=== PATIENT | male | born 1960 | race African-American/Black ===

== ENCOUNTER 2017-07-05 13:22 | Inpatient (IN) | payer OTHER ==
[2017-07-05 16:22] VITALS: BMI 19.7
--- NOTE | 2017-07-05 18:53 | HP ---
CIWA Score - CIWA Score Nausea/Vomitin-Mild Nausea/No Vomiting Muscle Tremors: 1-None Visible, but [place] Anxiety: 2 Agitation: 2 Paroxysmal Sweats: 1-Minimal Palms Moist Orientation: 1-Uncertain about Date Tacttile Disturbances: 2-Mild Itch/Numbness/Burn Auditory Disturbances: 0-None Visual Disturbances: 1-Very Mild Sensitivity Headache: 3-Moderate CIWA-Ar Total Score: 14 Admission ROS BHS - HPI Chief Complaint: WITHDRAWAL SYMPTOMS Allergies/Adverse Reactions: Allergies Allergy/AdvReac Type Severity Reaction Status Date / Time Penicillins Allergy Severe Hives Verified 07/05/17 17:02 History of Present Illness: 56 Y.O. MAN WITH AN EXTENSIVE HISTORY OF ALCOHOL AND CRACK-COCAINE DEPENDENCE IS HERE SEEKING HIS FIRST ADMISSION TO DETOX. Exam Limitations: No Limitations - Ebola screening Have you traveled outside of the country in the last 21 days: No Have you had contact with anyone from an Ebola affected area: No Have you been sick,other than usual withdrawal symptoms: No Do you have a fever: No - Review of Systems Constitutional: Loss of Appetite, Unintentional Wgt. Loss EENT: reports: Tearing Respiratory: reports: No Symptoms reported Cardiac: reports: No Symptoms Reported GI: reports: No Symptoms Reported : reports: No Symptoms Reported Musculoskeletal: reports: Joint Pain (LEFT HIP PAIN) Integumentary: reports: No Symptoms Reported Neuro: reports: Headache Endocrine: reports: No Symptoms Reported Hematology: reports: No Symptoms Reported Psychiatric: reports: Orientated x3, Depressed Other Systems: Reviewed and Negative Patient History - Patient Medical History Hx Anemia: No Hx Asthma: No Hx Chronic Obstructive Pulmonary Disease (COPD): No Hx Cancer: No Hx Cardiac Disorders: No Hx Congestive Heart Failure: No Hx Hypertension: No Hx Hypercholesterolemia: No Hx Pacemaker: No HX Cerebrovascular Accident: No Hx Seizures: No Hx Dementia: No Hx Diabetes: No Hx Gastrointestinal Disorders: No Hx Liver Disease: No Hx Genitourinary Disorders: No Hx Sexually Transmitted Disorders: Yes (SYPHILIS AT 19 Y.O. ) Hx Renal Disease (ESRD): No Hx Thyroid Disease: No Hx Human Immunodeficiency Virus (HIV): No Hx Hepatitis C: No Hx Depression: Yes Hx Suicide Attempt: No Hx Bipolar Disorder: No Hx Schizophrenia: No - Patient Surgical History Past Surgical History: Yes Other Surgical History: R Thigh cyst removed in 06/16 Anesthesia Reaction: No - PPD History Previous Implant?: Yes Documented Results: Negative w/o proof Implanted On Prior [facility] Admission?: No PPD to be Administered?: Yes - Reproductive History Patient is a Female of Child Bearing Age (11 -55 yrs old): No - Smoking Cessation Smoking history: Current every day smoker Have you smoked in the past 12 months: Yes Aproximately how many cigarettes per day: 5 Hx Chewing Tobacco Use: No Initiated information on smoking cessation: Yes 'Breaking Loose' booklet given: 07/05/17 - Substance & Tx. History Hx Alcohol Use: Yes Hx Substance Use: Yes Substance Use Type: Alcohol, Cocaine Hx Substance Use Treatment: No - Substances Abused Alcohol Route: Oral Frequency: Daily Amount used: 4 16 oz beers/ 1 pint cognac Age of first use: 21 Date of Last Use: 07/05/17 Crack Route: Smoking Frequency: Daily Amount used: $1000 Age of first use: 21 Date of Last Use: 07/04/17 Family Disease History - Family Disease History Family Disease History: Diabetes: Mother () Admission Physical Exam S - Vital Signs Vital Signs: Vital Signs - 24 hr 07/05/17 16:21 Temperature 96.7 F L Pulse Rate 95 H Respiratory 18 Rate Blood Pressure 124/84 - Physical General Appearance: Yes: Disheveled, Thin, Anxious HEENTM: Yes: Hearing grossly Normal, Normal ENT Inspection, Normocephalic, Normal Voice Respiratory: Yes: Chest Non-Tender, Lungs Clear, Normal Breath Sounds, No Respiratory Distress, No Accessory Muscle Use Neck: Yes: No masses,lesions,Nodules, Trachea in good position Breast: Yes: Breast Exam Deferred Cardiology: Yes: Regular Rhythm, Regular Rate Abdominal: Yes: Normal Bowel Sounds, Non Tender, Flat, Soft Genitourinary: Yes: Other (NO COMPLAINTS REPORTED) Back: Yes: Normal Inspection Musculoskeletal: Yes: full range of Motion, Gait Steady Extremities: Yes: Normal Capillary Refill, Normal Inspection, Normal Range of Motion, Non-Tender Neurological: Yes: Fully Oriented, Alert, Normal Mood/Affect, Normal Response Integumentary: Yes: Normal Color, Dry, Warm Lymphatic: Yes: Within Normal Limits - Diagnostic (1) Alcohol dependence with uncomplicated withdrawal Current Visit: Yes Status: Chronic (2) Cocaine dependence Current Visit: Yes Status: Chronic (3) Nicotine dependence Current Visit: Yes Status: Chronic (4) Underweight Current Visit: Yes Status: Chronic Cleared for Admission [facility] - Detox or Rehab [facility] Level of Care: Medically Managed Detox Regimen/Protocol: Librium [facility] Breath Alcohol Content Breath Alcohol Content: 0 Urine Drug Screen - Results Drug Screen Negative: No Urine Drug Screen Results: LIBERTAD-Cocaine
[2017-07-05] MEDS ORDERED: LOPERAMIDE HCL 2 MG CAPSULE PO PRN (19:03)
[2017-07-05] MEDS ORDERED: MAG HYDROX/AL HYDROX/SIMETH 30 ML UNIT-DOSE CUP PO PRN (19:03)
[2017-07-05] MEDS ORDERED: P-EPHED 60MG/TRIPROLIDI 2.5MG TABLET PO PRN (19:03)
[2017-07-05] MEDS ORDERED: IBUPROFEN 400 MG TABLET (FP) PO PRN (19:03)
[2017-07-05] MEDS ORDERED: chlordiazePOXIDE HCL 25 MG CAPSULE PO PRN (19:03)
[2017-07-05] MEDS ORDERED: MAGNESIUM CITRATE 300 ML BOTTLE PO PRN (19:03)
[2017-07-05] MEDS ORDERED: MAGNESIUM HYDROX 2400MG/30ML ORAL SUSPENSION 30 ML CUP PO PRN (19:03)
[2017-07-05] MEDS ORDERED: MENTHOL/PHENOL 1 EACH UD MM PRN (19:03)
[2017-07-05] MEDS ORDERED: guaiFENesin/D-METHORPHAN HB 10 ML UNIT-DOSE CUPS PO PRN (19:03)
[2017-07-05] MEDS ORDERED: hydrOXYzine PAMOATE 50 MG CAPSULE (FP) PO PRN (19:03)
[2017-07-05 20:55] LABS: URINE APPEARANCE CLEAR; URINE BILIRUBIN NEGATIVE (NEGATIVE); URINE BLOOD 1+ (NEGATIVE); URINE COLOR LTYELLOW; URINE GLUCOSE (UA) 1+ (NEGATIVE); URINE KETONE NEGATIVE (NEGATIVE); URINE LEUK ESTERASE NEGATIVE (NEGATIVE); URINE NITRITE NEGATIVE (NEGATIVE); URINE PROTEIN NEGATIVE (NEGATIVE); URINE UROBILINOGEN NEGATIVE mg/dL (0.2-1.0)
[2017-07-05 21:03] LABS: CALCIUM OXALATE CRYSTALS RARE /hpf (NONE SEEN); EPI CELLS RARE /HPF (FEW); URINE BACTERIA RARE /hpf (NONE SEEN); URINE HYALINE CAST 1 /lpf; URINE MUCUS RARE
[2017-07-05] MEDS: chlordiazePOXIDE HCL 25 MG CAPSULE PO SCH ×2 (22:04→22:14)
[2017-07-05] MEDS: THIAMINE HCL 100 MG TABLET (FP) PO SCH (22:04)
[2017-07-06] MEDS: ACETAMINOPHEN 325 MG TABLET (FP) PO PRN (06:01)
[2017-07-06] MEDS: chlordiazePOXIDE HCL 25 MG CAPSULE PO SCH ×4 (06:02→22:34)
[2017-07-06] MEDS: PRENATAL VITAMINS W/ FOLIC ACID TABLET (FP) PO SCH (10:19)
[2017-07-06 11:06] LABS: HEMATOCRIT 39.6 % (35.4-49); HEMOGLOBIN 12.4 GM/dL (11.7-16.9); MCH 25.3 pg (25.7-33.7); MCHC 31.4 g/dl (32.0-35.9); MEAN CELL VOLUME 80.7 fl (80-96); MEAN PLT VOLUME 7.6 fl (7.5-11.1); PLATELET COUNT 314 K/MM3 (134-434); RBC 4.91 M/mm3 (4.00-5.60); RDW 15.2 % (11.9-15.9); WHITE BLOOD COUNT 4.3 K/mm3 (4.0-10.0)
[2017-07-06 11:07] LABS: CHLORIDE 109 mmol/L (98-107); POTASSIUM 4.2 mmol/L (3.5-5.1); SODIUM 142 mmol/L (136-145)
[2017-07-06 11:16] LABS: ALBUMIN 3.1 g/dl (3.4-5.0); ALK PHOS 101 U/L (45-117); ANION GAP 6 (8-16); BILIRUBIN,TOTAL 0.4 mg/dL (0.2-1.0); BLOOD UREA NITROGEN 12 mg/dL (7-18); CALCIUM 8.4 mg/dL (8.5-10.1); CO2 27 mmol/L (21-32); CREATININE 1.1 mg/dL (0.7-1.3); GLUCOSE,RANDOM 82 mg/dL (74-106); SGOT/AST 17 U/L (15-37); SGPT/ALT 18 U/L (12-78); TOT PROT 6.1 g/dl (6.4-8.2)
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
--- NOTE | 2017-07-06 12:51 | PN ---
S CIWA - CIWA Score Nausea/Vomitin Muscle Tremors: 2 Anxiety: 2 Agitation: 2 Paroxysmal Sweats: 2 Orientation: 0-Oriented Tacttile Disturbances: 2-Mild Itch/Numbness/Burn Auditory Disturbances: 1-Very Mild Visual Disturbances: 1-Very Mild Sensitivity Headache: 2-Mild CIWA-Ar Total Score: 16 BHS Progress Note (SOAP) Subjective: Headache, shakes, sweats, sleeplessness, abdominal discomfort Objective: 07/06/17 12:50 Vital Signs - 8 hr 07/06/17 07/06/17 06:15 09:42 Temperature 98.1 F 96.1 F L Pulse Rate 79 90 Respiratory 16 20 Rate Blood Pressure 127/76 150/87 Laboratory Last Values WBC 4.3 K/mm3 (4.0-10.0) 07/06/17 08:00 RBC 4.91 M/mm3 (4.00-5.60) 07/06/17 08:00 Hgb 12.4 GM/dL (11.7-16.9) 07/06/17 08:00 Hct 39.6 % (35.4-49) 07/06/17 08:00 MCV 80.7 fl (80-96) 07/06/17 08:00 MCH 25.3 pg (25.7-33.7) L 07/06/17 08:00 MCHC 31.4 g/dl (32.0-35.9) L 07/06/17 08:00 RDW 15.2 % (11.9-15.9) 07/06/17 08:00 Plt Count 314 K/MM3 (134-434) 07/06/17 08:00 MPV 7.6 fl (7.5-11.1) 07/06/17 08:00 Sodium 142 mmol/L (136-145) 07/06/17 08:00 Potassium 4.2 mmol/L (3.5-5.1) 07/06/17 08:00 Chloride 109 mmol/L (98-107) H 07/06/17 08:00 Carbon Dioxide 27 mmol/L (21-32) 07/06/17 08:00 Anion Gap 6 (8-16) L 07/06/17 08:00 BUN 12 mg/dL (7-18) 07/06/17 08:00 Creatinine 1.1 mg/dL (0.7-1.3) 07/06/17 08:00 Creat Clearance w eGFR > 60 (>60) 07/06/17 08:00 Random Glucose 82 mg/dL (74-106) 07/06/17 08:00 Calcium 8.4 mg/dL (8.5-10.1) L 07/06/17 08:00 Total Bilirubin 0.4 mg/dL (0.2-1.0) 07/06/17 08:00 AST 17 U/L (15-37) 07/06/17 08:00 ALT 18 U/L (12-78) 07/06/17 08:00 Alkaline Phosphatase 101 U/L (45-117) 07/06/17 08:00 Total Protein 6.1 g/dl (6.4-8.2) L 07/06/17 08:00 Albumin 3.1 g/dl (3.4-5.0) L 07/06/17 08:00 Urine Color Ltyellow 07/05/17 19:00 Urine Appearance Clear 07/05/17 19:00 Urine pH 5.0 (5.0-8.0) 07/05/17 19:00 Ur Specific [place] 1.016 (1.001-1.035) 07/05/17 19:00 Urine Protein Negative (NEGATIVE) 07/05/17 19:00 Urine Glucose (UA) 1+ (NEGATIVE) H 07/05/17 19:00 Urine Ketones Negative (NEGATIVE) 07/05/17 19:00 Urine Blood 1+ (NEGATIVE) H 07/05/17 19:00 Urine Nitrite Negative (NEGATIVE) 07/05/17 19:00 Urine Bilirubin Negative (NEGATIVE) 07/05/17 19:00 Urine Urobilinogen Negative mg/dL (0.2-1.0) 07/05/17 19:00 Ur Leukocyte Esterase Negative (NEGATIVE) 07/05/17 19:00 Urine WBC (Auto) 5 /hpf (3-5) 07/05/17 19:00 Urine RBC (Auto) 29 /hpf (0-3) 07/05/17 19:00 Ur Epithelial Cells Rare /HPF (FEW) 07/05/17 19:00 Calcium Oxalate Crystal Rare /hpf (NONE SEEN) 07/05/17 19:00 Urine Bacteria Rare /hpf (NONE SEEN) 07/05/17 19:00 Hyaline Casts 1 /lpf 07/05/17 19:00 Urine Mucus Rare 07/05/17 19:00 RPR Titer Nonreactive (NONREACTIVE) 07/06/17 08:00 Labs noted Assessment: 07/06/17 12:50 Withdrawal sx Plan: Continue detox
--- NOTE | 2017-07-06 13:40 | EKG ---
Test Reason : Blood Pressure : / mmHG Vent. Rate : 090 BPM Atrial Rate : 090 BPM P-R Int : 116 ms QRS Dur : 136 ms QT Int : 322 ms P-R-T Axes : 094 083 075 degrees QTc Int : 393 ms NORMAL SINUS RHYTHM NON-SPECIFIC INTRA-VENTRICULAR CONDUCTION BLOCK ABNORMAL ECG NO PREVIOUS ECGS AVAILABLE Confirmed by DAVID RAMAN MD ([id number]) on 07/06/2017 1:39:37 PM Referred By: Confirmed By:DAVID RAMAN MD
[2017-07-06] MEDS: THIAMINE HCL 100 MG TABLET (FP) PO SCH (22:33)
[2017-07-07] MEDS: ACETAMINOPHEN 325 MG TABLET (FP) PO PRN (05:49)
[2017-07-07] MEDS: chlordiazePOXIDE HCL 25 MG CAPSULE PO SCH ×3 (05:49→17:00)
[2017-07-07] MEDS: PRENATAL VITAMINS W/ FOLIC ACID TABLET (FP) PO SCH (10:23)
--- NOTE | 2017-07-07 13:26 | PN ---
S CIWA - CIWA Score Nausea/Vomitin-No Nausea/No Vomiting Muscle Tremors: 3 Anxiety: 4-Mod. Anxious/Guarded Agitation: 4-Moderately Restless Paroxysmal Sweats: 3 Orientation: 0-Oriented Tacttile Disturbances: 0-None Auditory Disturbances: 0-None Visual Disturbances: 0-None Headache: 3-Moderate CIWA-Ar Total Score: 17 BHS Progress Note (SOAP) Subjective: Anxiety, tremor, interrupted sleep, and headache Objective: 07/07/17 13:24 Last Vital Signs Temp Pulse Resp BP Pulse Ox 96.2 F L 102 H 16 139/82 07/07/17 09:52 07/07/17 09:52 07/07/17 09:52 07/07/17 09:52 Laboratory Last Values WBC 4.3 K/mm3 (4.0-10.0) 07/06/17 08:00 RBC 4.91 M/mm3 (4.00-5.60) 07/06/17 08:00 Hgb 12.4 GM/dL (11.7-16.9) 07/06/17 08:00 Hct 39.6 % (35.4-49) 07/06/17 08:00 MCV 80.7 fl (80-96) 07/06/17 08:00 MCH 25.3 pg (25.7-33.7) L 07/06/17 08:00 MCHC 31.4 g/dl (32.0-35.9) L 07/06/17 08:00 RDW 15.2 % (11.9-15.9) 07/06/17 08:00 Plt Count 314 K/MM3 (134-434) 07/06/17 08:00 MPV 7.6 fl (7.5-11.1) 07/06/17 08:00 Sodium 142 mmol/L (136-145) 07/06/17 08:00 Potassium 4.2 mmol/L (3.5-5.1) 07/06/17 08:00 Chloride 109 mmol/L (98-107) H 07/06/17 08:00 Carbon Dioxide 27 mmol/L (21-32) 07/06/17 08:00 Anion Gap 6 (8-16) L 07/06/17 08:00 BUN 12 mg/dL (7-18) 07/06/17 08:00 Creatinine 1.1 mg/dL (0.7-1.3) 07/06/17 08:00 Creat Clearance w eGFR > 60 (>60) 07/06/17 08:00 Random Glucose 82 mg/dL (74-106) 07/06/17 08:00 Calcium 8.4 mg/dL (8.5-10.1) L 07/06/17 08:00 Total Bilirubin 0.4 mg/dL (0.2-1.0) 07/06/17 08:00 AST 17 U/L (15-37) 07/06/17 08:00 ALT 18 U/L (12-78) 07/06/17 08:00 Alkaline Phosphatase 101 U/L (45-117) 07/06/17 08:00 Total Protein 6.1 g/dl (6.4-8.2) L 07/06/17 08:00 Albumin 3.1 g/dl (3.4-5.0) L 07/06/17 08:00 Urine Color Ltyellow 07/05/17 19:00 Urine Appearance Clear 07/05/17 19:00 Urine pH 5.0 (5.0-8.0) 07/05/17 19:00 Ur Specific [place] 1.016 (1.001-1.035) 07/05/17 19:00 Urine Protein Negative (NEGATIVE) 07/05/17 19:00 Urine Glucose (UA) 1+ (NEGATIVE) H 07/05/17 19:00 Urine Ketones Negative (NEGATIVE) 07/05/17 19:00 Urine Blood 1+ (NEGATIVE) H 07/05/17 19:00 Urine Nitrite Negative (NEGATIVE) 07/05/17 19:00 Urine Bilirubin Negative (NEGATIVE) 07/05/17 19:00 Urine Urobilinogen Negative mg/dL (0.2-1.0) 07/05/17 19:00 Ur Leukocyte Esterase Negative (NEGATIVE) 07/05/17 19:00 Urine WBC (Auto) 5 /hpf (3-5) 07/05/17 19:00 Urine RBC (Auto) 29 /hpf (0-3) 07/05/17 19:00 Ur Epithelial Cells Rare /HPF (FEW) 07/05/17 19:00 Calcium Oxalate Crystal Rare /hpf (NONE SEEN) 07/05/17 19:00 Urine Bacteria Rare /hpf (NONE SEEN) 07/05/17 19:00 Hyaline Casts 1 /lpf 07/05/17 19:00 Urine Mucus Rare 07/05/17 19:00 RPR Titer Nonreactive (NONREACTIVE) 07/06/17 08:00 Labs noted Assessment: 07/07/17 13:25 withdrawal symptoms Plan: Continue detox
[2017-07-07] MEDS: chlordiazePOXIDE 5 MG CAPSULE PO SCH (22:02)
[2017-07-07] MEDS: THIAMINE HCL 100 MG TABLET (FP) PO SCH (22:02)
[2017-07-08] MEDS: chlordiazePOXIDE 5 MG CAPSULE PO SCH ×3 (05:55→18:14)
[2017-07-08] MEDS: PRENATAL VITAMINS W/ FOLIC ACID TABLET (FP) PO SCH (10:50)
--- NOTE | 2017-07-08 12:00 | PN ---
BHS Progress Note (SOAP) Subjective: DECREASED ANXIETY,SWEATS,IRRITABILITY. Objective: 07/08/17 11:59 Vital Signs Temperature 97.1 F L 07/08/17 10:51 Pulse Rate 91 H 07/08/17 10:51 Respiratory Rate 18 07/08/17 10:51 Blood Pressure 143/78 07/08/17 10:51 O2 Sat by Pulse Oximetry (%) Laboratory Last Values WBC 4.3 K/mm3 (4.0-10.0) 07/06/17 08:00 RBC 4.91 M/mm3 (4.00-5.60) 07/06/17 08:00 Hgb 12.4 GM/dL (11.7-16.9) 07/06/17 08:00 Hct 39.6 % (35.4-49) 07/06/17 08:00 MCV 80.7 fl (80-96) 07/06/17 08:00 MCH 25.3 pg (25.7-33.7) L 07/06/17 08:00 MCHC 31.4 g/dl (32.0-35.9) L 07/06/17 08:00 RDW 15.2 % (11.9-15.9) 07/06/17 08:00 Plt Count 314 K/MM3 (134-434) 07/06/17 08:00 MPV 7.6 fl (7.5-11.1) 07/06/17 08:00 Sodium 142 mmol/L (136-145) 07/06/17 08:00 Potassium 4.2 mmol/L (3.5-5.1) 07/06/17 08:00 Chloride 109 mmol/L (98-107) H 07/06/17 08:00 Carbon Dioxide 27 mmol/L (21-32) 07/06/17 08:00 Anion Gap 6 (8-16) L 07/06/17 08:00 BUN 12 mg/dL (7-18) 07/06/17 08:00 Creatinine 1.1 mg/dL (0.7-1.3) 07/06/17 08:00 Creat Clearance w eGFR > 60 (>60) 07/06/17 08:00 Random Glucose 82 mg/dL (74-106) 07/06/17 08:00 Calcium 8.4 mg/dL (8.5-10.1) L 07/06/17 08:00 Total Bilirubin 0.4 mg/dL (0.2-1.0) 07/06/17 08:00 AST 17 U/L (15-37) 07/06/17 08:00 ALT 18 U/L (12-78) 07/06/17 08:00 Alkaline Phosphatase 101 U/L (45-117) 07/06/17 08:00 Total Protein 6.1 g/dl (6.4-8.2) L 07/06/17 08:00 Albumin 3.1 g/dl (3.4-5.0) L 07/06/17 08:00 Urine Color Ltyellow 07/05/17 19:00 Urine Appearance Clear 07/05/17 19:00 Urine pH 5.0 (5.0-8.0) 07/05/17 19:00 Ur Specific [place] 1.016 (1.001-1.035) 07/05/17 19:00 Urine Protein Negative (NEGATIVE) 07/05/17 19:00 Urine Glucose (UA) 1+ (NEGATIVE) H 07/05/17 19:00 Urine Ketones Negative (NEGATIVE) 07/05/17 19:00 Urine Blood 1+ (NEGATIVE) H 07/05/17 19:00 Urine Nitrite Negative (NEGATIVE) 07/05/17 19:00 Urine Bilirubin Negative (NEGATIVE) 07/05/17 19:00 Urine Urobilinogen Negative mg/dL (0.2-1.0) 07/05/17 19:00 Ur Leukocyte Esterase Negative (NEGATIVE) 07/05/17 19:00 Urine WBC (Auto) 5 /hpf (3-5) 07/05/17 19:00 Urine RBC (Auto) 29 /hpf (0-3) 07/05/17 19:00 Ur Epithelial Cells Rare /HPF (FEW) 07/05/17 19:00 Calcium Oxalate Crystal Rare /hpf (NONE SEEN) 07/05/17 19:00 Urine Bacteria Rare /hpf (NONE SEEN) 07/05/17 19:00 Hyaline Casts 1 /lpf 07/05/17 19:00 Urine Mucus Rare 07/05/17 19:00 RPR Titer Nonreactive (NONREACTIVE) 07/06/17 08:00 Assessment: 07/08/17 12:00 WITHDRAWAL SX Plan: CONTINUE DETOX
[2017-07-08] MEDS: chlordiazePOXIDE HCL 10 MG CAPSULE PO SCH (22:25)
[2017-07-08] MEDS: THIAMINE HCL 100 MG TABLET (FP) PO SCH (22:25)
[2017-07-09] MEDS: chlordiazePOXIDE HCL 10 MG CAPSULE PO SCH ×2 (06:13→11:12)
[2017-07-09 06:46] VITALS: PULSE 72
[2017-07-09] MEDS: PRENATAL VITAMINS W/ FOLIC ACID TABLET (FP) PO SCH (11:11)
--- NOTE | 2017-07-09 11:21 | PN ---
BHS Progress Note (SOAP) Subjective: ANXIETY,IRRITABILITY.DESIRES TO GO TO REHAB AFTER DETOX. Objective: 07/09/17 11:20 Vital Signs Temperature 96.9 F L 07/09/17 06:46 Pulse Rate 72 07/09/17 06:46 Respiratory Rate 18 07/09/17 06:46 Blood Pressure 118/76 07/09/17 06:46 O2 Sat by Pulse Oximetry (%) Laboratory Last Values WBC 4.3 K/mm3 (4.0-10.0) 07/06/17 08:00 RBC 4.91 M/mm3 (4.00-5.60) 07/06/17 08:00 Hgb 12.4 GM/dL (11.7-16.9) 07/06/17 08:00 Hct 39.6 % (35.4-49) 07/06/17 08:00 MCV 80.7 fl (80-96) 07/06/17 08:00 MCH 25.3 pg (25.7-33.7) L 07/06/17 08:00 MCHC 31.4 g/dl (32.0-35.9) L 07/06/17 08:00 RDW 15.2 % (11.9-15.9) 07/06/17 08:00 Plt Count 314 K/MM3 (134-434) 07/06/17 08:00 MPV 7.6 fl (7.5-11.1) 07/06/17 08:00 Sodium 142 mmol/L (136-145) 07/06/17 08:00 Potassium 4.2 mmol/L (3.5-5.1) 07/06/17 08:00 Chloride 109 mmol/L (98-107) H 07/06/17 08:00 Carbon Dioxide 27 mmol/L (21-32) 07/06/17 08:00 Anion Gap 6 (8-16) L 07/06/17 08:00 BUN 12 mg/dL (7-18) 07/06/17 08:00 Creatinine 1.1 mg/dL (0.7-1.3) 07/06/17 08:00 Creat Clearance w eGFR > 60 (>60) 07/06/17 08:00 Random Glucose 82 mg/dL (74-106) 07/06/17 08:00 Calcium 8.4 mg/dL (8.5-10.1) L 07/06/17 08:00 Total Bilirubin 0.4 mg/dL (0.2-1.0) 07/06/17 08:00 AST 17 U/L (15-37) 07/06/17 08:00 ALT 18 U/L (12-78) 07/06/17 08:00 Alkaline Phosphatase 101 U/L (45-117) 07/06/17 08:00 Total Protein 6.1 g/dl (6.4-8.2) L 07/06/17 08:00 Albumin 3.1 g/dl (3.4-5.0) L 07/06/17 08:00 Urine Color Ltyellow 07/05/17 19:00 Urine Appearance Clear 07/05/17 19:00 Urine pH 5.0 (5.0-8.0) 07/05/17 19:00 Ur Specific [place] 1.016 (1.001-1.035) 07/05/17 19:00 Urine Protein Negative (NEGATIVE) 07/05/17 19:00 Urine Glucose (UA) 1+ (NEGATIVE) H 07/05/17 19:00 Urine Ketones Negative (NEGATIVE) 07/05/17 19:00 Urine Blood 1+ (NEGATIVE) H 07/05/17 19:00 Urine Nitrite Negative (NEGATIVE) 07/05/17 19:00 Urine Bilirubin Negative (NEGATIVE) 07/05/17 19:00 Urine Urobilinogen Negative mg/dL (0.2-1.0) 07/05/17 19:00 Ur Leukocyte Esterase Negative (NEGATIVE) 07/05/17 19:00 Urine WBC (Auto) 5 /hpf (3-5) 07/05/17 19:00 Urine RBC (Auto) 29 /hpf (0-3) 07/05/17 19:00 Ur Epithelial Cells Rare /HPF (FEW) 07/05/17 19:00 Calcium Oxalate Crystal Rare /hpf (NONE SEEN) 07/05/17 19:00 Urine Bacteria Rare /hpf (NONE SEEN) 07/05/17 19:00 Hyaline Casts 1 /lpf 07/05/17 19:00 Urine Mucus Rare 07/05/17 19:00 RPR Titer Nonreactive (NONREACTIVE) 07/06/17 08:00 Assessment: 01/09/18 11:20 WITHDRAWAL SX Plan: CONTINUE DETOX INCREASE PO FLUIDS REPEAT UA TODAY
[2017-07-09 13:55] VITALS: BP 120/76; TEMP 95.7
== END 2017-07-09 14:08 | disposition other institution (70) | DRG 774 ==
LOC: YASAS 13:22 → Y3N 17:06
PROVIDERS: ADMIT Internal Medicine; ATTEND Internal Medicine
PROC: HZ2ZZZZ Detoxification Services for Substance Abuse Treatment (ICD-10-PCS; principal; 2017-07-05)
DX: F10.230 Alcohol dependence with withdrawal, uncomplicated (principal); F14.20 Cocaine dependence, uncomplicated; F17.213 Nicotine dependence, cigarettes, with withdrawal; R63.6 Underweight; Z68.1 Body mass index [BMI] 19.9 or less, adult; Z87.438 Personal history of other diseases of male genital organs; Z88.0 Allergy status to penicillin
CPT/HCPCS: 36415; 80053; 81003; 81015; 85027; 86593; 93005; 93010

== ENCOUNTER 2017-07-09 14:22 | Inpatient (IN) | payer OTHER ==
[2017-07-09] MEDS ORDERED: MAGNESIUM CITRATE 300 ML BOTTLE PO PRN (16:02)
[2017-07-09] MEDS ORDERED: NICOTINE POLACRILEX 2 MG GUM BUC PRN (16:02)
[2017-07-09] MEDS ORDERED: IBUPROFEN 400 MG TABLET (FP) PO PRN (16:02)
[2017-07-09] MEDS ORDERED: MENTHOL/PHENOL 1 EACH UD MM PRN (16:02)
[2017-07-09] MEDS ORDERED: guaiFENesin/D-METHORPHAN HB 10 ML UNIT-DOSE CUPS PO PRN (16:02)
[2017-07-09] MEDS ORDERED: MAGNESIUM HYDROX 2400MG/30ML ORAL SUSPENSION 30 ML CUP PO PRN (16:02)
[2017-07-09] MEDS ORDERED: MAG HYDROX/AL HYDROX/SIMETH 30 ML UNIT-DOSE CUP PO PRN (16:02)
[2017-07-09] MEDS ORDERED: hydrOXYzine PAMOATE 50 MG CAPSULE (FP) PO PRN (16:02)
[2017-07-09] MEDS ORDERED: ACETAMINOPHEN 325 MG TABLET (FP) PO PRN (16:02)
[2017-07-09] MEDS ORDERED: P-EPHED 60MG/TRIPROLIDI 2.5MG TABLET PO PRN (16:02)
[2017-07-09] MEDS ORDERED: LOPERAMIDE HCL 2 MG CAPSULE PO PRN (16:02)
--- NOTE | 2017-07-09 16:03 | HP ---
[facility] Re[facility] Assess/Revision - Admission History Admitted to Rehab from: [facility] [place] Date of Admission to Rehab: 07/09/17 - Vital signs Vital Signs: vital signs and labs reveiwed - Findings Detox History & Physical reviewed: Yes Concur with findings: Yes Inpatient Rehab Admission - Initial Determination Are CD services needed?: Yes Free of communicable disease: Yes Not in need of hospitalization: Yes - Rehab Admission Criteria Previous failed treatment: Yes Lacks judgement: Yes Patient is meeting Inpatient Rehab admission criteria:: Yes
[2017-07-09] MEDS: THIAMINE HCL 100 MG TABLET (FP) PO SCH (22:10)
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
[2017-07-10] MEDS: PRENATAL VITAMINS W/ FOLIC ACID TABLET (FP) PO SCH (09:22)
[2017-07-10] MEDS: NICOTINE 14 MG/24 HOURS TOPICAL PATCH TD SCH (09:23)
[2017-07-10] MEDS: THIAMINE HCL 100 MG TABLET (FP) PO SCH (21:43)
[2017-07-11] MEDS: NICOTINE 14 MG/24 HOURS TOPICAL PATCH TD SCH (10:07)
[2017-07-11] MEDS: PRENATAL VITAMINS W/ FOLIC ACID TABLET (FP) PO SCH (10:19)
[2017-07-11] MEDS: THIAMINE HCL 100 MG TABLET (FP) PO SCH (22:00)
[2017-07-12] MEDS: NICOTINE 14 MG/24 HOURS TOPICAL PATCH TD SCH (10:20)
[2017-07-12] MEDS: PRENATAL VITAMINS W/ FOLIC ACID TABLET (FP) PO SCH (10:20)
[2017-07-12] MEDS: THIAMINE HCL 100 MG TABLET (FP) PO SCH (21:43)
[2017-07-13] MEDS: PRENATAL VITAMINS W/ FOLIC ACID TABLET (FP) PO SCH (10:17)
[2017-07-13] MEDS: NICOTINE 14 MG/24 HOURS TOPICAL PATCH TD SCH (10:17)
[2017-07-13] MEDS: THIAMINE HCL 100 MG TABLET (FP) PO SCH (22:01)
[2017-07-14] MEDS: PRENATAL VITAMINS W/ FOLIC ACID TABLET (FP) PO SCH (11:10)
[2017-07-14] MEDS: NICOTINE 14 MG/24 HOURS TOPICAL PATCH TD SCH (11:10)
[2017-07-14] MEDS: THIAMINE HCL 100 MG TABLET (FP) PO SCH (22:08)
[2017-07-15] MEDS: PRENATAL VITAMINS W/ FOLIC ACID TABLET (FP) PO SCH (09:58)
[2017-07-15] MEDS: NICOTINE 14 MG/24 HOURS TOPICAL PATCH TD SCH (09:58)
[2017-07-16 06:44] VITALS: BP 132/80; PULSE 62; TEMP 97.9
[2017-07-16] MEDS: PRENATAL VITAMINS W/ FOLIC ACID TABLET (FP) PO SCH (09:17)
[2017-07-16] MEDS: NICOTINE 14 MG/24 HOURS TOPICAL PATCH TD SCH (09:17)
--- NOTE | 2017-07-16 09:41 | PN ---
Psychiatric Progress Note Vital Signs: Vital Signs Period Temp Pulse Resp BP Sys/Wilkerson Pulse Ox Last 24 Hr 97.9 F 62 18 132/80 Date of Session: 07/16/17 Chief Complaint:: Discharge Note HPI: Patient addressing Alcohol and Cocaine Dependence comorbid with Nicotine Dependence, Substance-induce Mood Disorder cand Substance-induced Sleep Disorder Current Medications: Active Medications Generic Name Dose Route Start Last Admin Trade Name Freq PRN Reason Stop Dose Admin Acetaminophen 650 mg 07/09/17 16:02 07/16/17 09:14 Tylenol - PO 650 mg Q4H PRN Administration FEVER OR PAIN Al Hydroxide/Mg Hydroxide 30 ml 07/09/17 16:02 Mylanta Oral Suspension - PO Q6H PRN DYSPEPSIA Eucalyptus/Menthol/Phenol/Sorbitol 1 each 07/09/17 16:02 Cepastat Lozenge - MM Q4H PRN SORE THROAT Guaifenesin 10 ml 07/09/17 16:02 Robitussin Dm - PO Q6H PRN COUGH Hydroxyzine Pamoate 50 mg 07/09/17 16:02 Vistaril - PO Q4H PRN AGITATION Ibuprofen 400 mg 07/09/17 16:02 Motrin - PO Q6H PRN FEVER OR PAIN Loperamide HCl 4 mg 07/09/17 16:02 Imodium - PO Q6H PRN DIARRHEA Magnesium Citrate 300 ml 07/09/17 16:02 Citroma - PO Q48H PRN CONSTIPATION Magnesium Hydroxide 30 ml 07/09/17 16:02 Milk Of Magnesia - PO DAILY PRN CONSTIPATION Nicotine 14 mg 07/10/17 10:00 07/16/17 09:17 Nicoderm Patch - TD Not Given DAILY SAMMIE Nicotine Polacrilex 2 mg 07/09/17 16:02 Nicorette Gum - BUC Q2H PRN NICOTINE REPLACEMENT RX Multivit/Folic Acid/Iron 1 tab 07/10/17 10:00 07/16/17 09:17 Vitamins (Sj[facility]) - PO Not Given DAILY SAMMIE Pseudoephedrine/Triprolidine 1 combo 07/09/17 16:02 Actifed - PO TID PRN NASAL CONGESTION Thiamine HCl 100 mg 07/09/17 22:00 07/14/17 22:08 Vitamin B1 - PO Not Given HS SAMMIE Current Side Effect: No Lab tests ordered: Yes Lab tests reviewed: Yes Provider note:: Patient has completed this program today. He has partially met his treatment goals and will continue to address his issues in [facility]. 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 He is stable for discharge today Total face to face time:: 35 Mental Status Exam - Mental Status Exam Alert and Oriented to: Time, Place, Person Cognitive Function: Fair Patient Appearance: Well Groomed Mood: Hopeful, Euthymic Affect: Appropriate Patient Behavior: Cooperative Speech Pattern: Clear Voice Loudness: Normal Thought Process: Intact, Goal Oriented Thought Disorder: Not Present Suicidal Ideation: Denies Homicidal Ideation: Denies Insight/Judgement: Fair Sleep: Well Appetite: Good Muscle strength/Tone: Normal Gait/Station: Normal Psychiatric Treatment Plan - Problem List (1) Alcohol dependence Current Visit: Yes (2) Cocaine dependence Current Visit: No Qualifiers: Substance use status: uncomplicated Qualified Code(s): F14.20 - Cocaine dependence, uncomplicated (3) Nicotine dependence Current Visit: No Qualifiers: Nicotine product type: cigarettes Substance use status: in withdrawal Qualified Code(s): F17.213 - Nicotine dependence, cigarettes, with withdrawal (4) Substance induced mood disorder Current Visit: Yes (5) Substance-induced sleep disorder Current Visit: Yes Initial treatment plan: Patient is discharged today and referred to [facility] for exterminator helper residential treatment
== END 2017-07-16 10:00 | disposition home or self-care (01) | DRG 772 ==
LOC: YASAS 14:22 → Y5N 14:23 → Y3W 14:30
PROVIDERS: ADMIT Psychiatry & Neurology Psychiatry; ATTEND Psychiatry & Neurology Psychiatry
PROC: HZ42ZZZ Group Counseling for Substance Abuse Treatment, Cognitive-Behavioral (ICD-10-PCS; principal; 2017-07-09)
DX: F10.20 Alcohol dependence, uncomplicated (principal); F14.20 Cocaine dependence, uncomplicated; F17.213 Nicotine dependence, cigarettes, with withdrawal; F19.24 Other psychoactive substance dependence with psychoactive substance-induced mood disorder; F19.282 Other psychoactive substance dependence with psychoactive substance-induced sleep disorder; Z87.438 Personal history of other diseases of male genital organs